=== PATIENT | female | born 2000 | race Two or more races ===

== ENCOUNTER 2024-08-12 19:12 | Emergency (ER) | payer MEDICAID ==
[~2024-08-12] VITALS: Ht 182.9 cm; Wt 79.1 kg
--- NOTE | 2024-08-12 19:31 | ED.PDOC ---
Psychiatric HPI Comments 24-year-old biological male, self-identifying female presents with a chief complaint of hopelessness and suicidal ideation by ingestion x 1 hour ago. Patient states that they took an unknown dosage amount of Tylenol PM's and states that they took approximately 10 pills. Patient states that they are "tired" of life and that this is the first time that they have done this before. Patient does not have outpatient psychological services established such as therapist and psychiatrist. No other symptoms or modifying factors present at this time. Time Seen by MD: 19:23 Reviewed Notes: Medications, Allergies Information Source: Patient Mode of Arrival: Ambulatory Severity: Able to Care for Self, Unable to Control Self Severity of Pain: None Severity of Mental Status: Severe Severity of Symptoms: None Timing: Hours Duration: Since onset Prehospital treatment: None Presents with: Suicidal Ideation Attempt: Ingestion Ingestion: Intentional, Drug(s) Ingested (Tylenol PM), Amount Ingested (UNKNOWN AMOUNT) Current substance abuse: None Associated signs and symptoms: Hopeless Past Medical History PAST MEDICAL HISTORY: Denies Surgical History: Denies all surgeries [employer] WORKER History: Denies all [employer] WORKER Hx Family History Family History: Reviewed,noncontributory to illness Social History Smoker: Non-Smoker Alcohol: Denies ETOH Use Drugs: Denies Drug Use Lives In: Home Constitutional: denies: chills, diaphoresis, fatigue, fever, malaise, sweats, weakness, others EENTM: denies: blurred vision, double vision, ear bleeding, ear discharge, ear drainage, ear pain, ear ringing, eye pain, eye redness, hearing loss, mouth pain, mouth swelling, nasal discharge, nose bleeding, nose congestion, nose pain, photophobia, tearing, throat pain, throat swelling, voice changes, others Respiratory: denies: cough, hemoptysis, orthopnea, SOB at rest, shortness of breath, SOB with excertion, stridor, wheezing, others Cardiovascular: denies: chest pain, dizzy spells, diaphoresis, Dyspnea on ex ertion, edema, irregular heart beat, left arm pain, lightheadedness, palpitations, PND, syncope, others Gastrointestinal: denies: abdomen distended, abdominal pain, blood streaked bowels, constipated, diarrhea, dysphagia, difficulty swallowing, hematemesis, melena, nausea, poor appetite, poor fluid intake, rectal bleeding, rectal pain, vomiting, others Genitourinary: denies: abnormal vagina bleeding, burning, dyspareunia, dysuria, flank pain, frequency, hematuria, incontinence, pain, , vagina discharge, urgency, others Neurological: denies: dizziness, fainting, headache, left sided numbness, left sided weakness, numbness, paresthesia, pre-existing deficit, right sided numbness, right sided weakness, seizure, speech problems, tingling, tremors, weakness, others Musculoskeletal: denies: back pain, gout, joint pain, joint swelling, muscle pain, muscle stiffness, neck pain, others Integumetry: denies: bruises, change in color, change in hair/nails, dryness, laceration, lesions, lumps, rash, wounds, others Allergic/Immunocompromised: denies: Difficulty Healing, Frequent Infections, Hives, Itching, others Hematologic/Lymphatic: denies: anemia, blood clots, easy bleeding, easy bruising, swollen glands, others Endocrine: denies: excessive hunger, excessive sweating, excessive thirst, excessive urination, flushing, intolerance to cold, intolerance to heat, unexplained weight gain, unexplained weight loss, others Psychiatric: reports: hopeless, suicidal; denies: anxiety, bipolar disorder, depression, panic disorder, schizophrenia, sleepless, others All Other Systems: Reviewed and Negative Physical Exam General Appearance: Mild Distress, Normal HEENT: NOT DONE Neck: NOT DONE Respiratory: Chest Non-Tender, Lungs Clear, No Accessory Muscle Use, No Respiratory Distress, Normal Breath Sounds Cardiovascular: No Edema, No JVD, No Murmur, No Gallop, Normal Peripheral Pulses, Regular Rate/Rhythm Breast Exam: Deferred Gastrointestinal: No Organomegaly, Non Tender, No Pulsatile Mass, Normal Bowel Sounds, Soft Genitalia: Deferred Pelvic: Deferred Rectal: Deferred Extremities: No calf tenderness, Normal capillary refill, Normal inspection, Normal range of motion, Non-tender, No pedal edema Neurologic: Alert, dry starch operator II-XII nml as Tested, No Motor Deficits, Normal Affect, Normal Mood, No Sensory Deficits Cerebellar Function: Normal Reflexes: Normal Skin: Dry, Normal Color, Warm Lymphatic: No Adenopathy Was a procedure done? Was a procedure done?: No X-Ray, Labs, Meds, VS Vital Signs Date Time Temp Pulse Resp B/P (MAP) Pulse Ox O2 Delivery O2 Flow Rate FiO2 08/13/24 00:04 62 08/12/24 19:29 97.9 122 20 143/74 (97) 97 Lab Test 08/12/24 23:48 08/12/24 19:43 Range/Units Acetaminophen Level 19.0 50.0 *H 10.0-20.0 UG/ML White Blood Count 9.3 4.4-10.8 10^3/uL Red Blood Count 4.92 4.0-5.20 10^6/uL Hemoglobin 16.9 H 12.2-16.2 g/dL Hematocrit 48.0 H 36.0-46.0 % Mean Corpuscular Volume 97.5 80.0-100.0 fL Mean Corpuscular Hemoglobin 34.4 H 28.0-32.0 pg Mean Corpuscular Hemoglobin Concent 35.3 32.0-36.0 g/dL Red Cell Distribution Width 13.1 11.8-14.3 % Platelet Count 302 140-450 10^3/uL Mean Platelet Volume 7.1 6.9-10.8 fL Neutrophils (%) (Auto) 75.5 37.0-80.0 % Lymphocytes (%) (Auto) 14.6 10.0-50.0 % Monocytes (%) (Auto) 9.5 0.0-12.0 % Eosinophils (%) (Auto) 0.1 0.0-7.0 % Basophils (%) (Auto) 0.3 0.0-2.0 % Neutrophils # (Auto) 7.0 1.6-8.6 10 ^3/uL Lymphocytes # (Auto) 1.4 0.4-5.4 10 ^3/uL Monocytes # (Auto) 0.9 0-1.3 10 ^3/uL Eosinophils # (Auto) 0 0-0.8 10 ^3/uL Basophils # (Auto) 0 0-0.2 10 ^3/uL Nucleated Red Blood Cells 0.0 % Sodium Level 136 136-145 mmol/L Potassium Level 3.6 3.5-5.1 mmol/L Chloride Level 100 98-107 mmol/L Carbon Dioxide Level 25 20-31 mmol/L Anion Gap 11 5-15 Blood Urea Nitrogen 11 9-23 mg/dL Creatinine 1.07 H 0.550-1.02 mg/dL Glomerular Filtration Rate Calc 75 >90 mL/min BUN/Creatinine Ratio 10.3 10.0-20.0 Serum Glucose 110 H 74-106 mg/dL Calcium Level 10.3 8.7-10.4 mg/dL Total Bilirubin 5.6 H 0.2-1.0 mg/dL Aspartate Amino Transferase (AST) 16 13-40 U/L Alanine Aminotransferase (ALT) 13 7-40 U/L Alkaline Phosphatase 56 46-116 U/L Total Protein 8.0 5.7-8.2 g/dL Albumin 5.3 H 3.2-4.8 g/dL Salicylates Level < 3.0 -30 mg/dL X-Ray, Labs, Meds, VS Comment REVIEW OF DR. RAMÍREZ PSYCHIATRIST KNOWN, HE WILL PLACE PATIENT WAS UNDER 5150, WE WILL START TRANSFER FOR PSYCHIATRIC FACILITY. TYLENOL LEVEL TRENDING DOWN Time of 1ST Reevaluation: 19:50 Reevaluation 1ST: Unchanged Patient Education/Counseling: Diagnosis, Treatment, Prognosis Family Education/Counseling: Diagnosis, Treatment, Prognosis Departure 1 Departure Time of Disposition: 01:53 Impression: Primary Impression: Major depressive disorder Qualified Codes: F32.9 - Major depressive disorder, single episode, unspecified Additional Impression: Suicide attempt Dis[facility]: [facility] Condition: Stable Discharged With: Self Critical Care Note Critical Care Time?: No Stability Stability form required: No Heart Score Heart Score: Heart Score Response (Comments) Value History N/A 0 EKG N/A 0 Age N/A 0 Risk Factors N/A 0 Troponin N/A 0 Total 0 I personally scribed for HEATHER SANTIAGO ([email or web address]) on 08/12/24 at 19:31. Electronically submitted by Richie Bell ([email or web address]). HEATHER SANTIAGO Aug 12, 2024 19:31
[2024-08-12 20:00] LABS: Eosinophils # (auto) 0 10 ^3/uL (0-0.8); Eosinophils % (auto) 0.1 % (0.0-7.0); Monocytes # (auto) 0.9 10 ^3/uL (0-1.3); Monocytes % (auto) 9.5 % (0.0-12.0)
[2024-08-12 20:01] LABS: Basophils # (auto) 0 10 ^3/uL (0-0.2); Basophils % (auto) 0.3 % (0.0-2.0); Hemoglobin 16.9 g/dL (12.2-16.2); Lymphocytes # (auto) 1.4 10 ^3/uL (0.4-5.4); Lymphocytes % (auto) 14.6 % (10.0-50.0); Mean Corpuscular Hemoglobin 34.4 pg (28.0-32.0); Mean Corpuscular Hgb Conc. 35.3 g/dL (32.0-36.0); Mean Corpuscular Volume 97.5 fL (80.0-100.0); Neutrophils % (auto) 75.5 % (37.0-80.0); Platelet Count (auto) 302 10^3/uL (140-450); Red Blood Cells 4.92 10^6/uL (4.0-5.20); Red Cell Distribution Width 13.1 % (11.8-14.3); White Blood Cell 9.3 10^3/uL (4.4-10.8)
[2024-08-12 20:18] LABS: Alanine Aminotransferase 13 U/L (7-40); Alkaline Phosphatase 56 U/L (46-116); Anion Gap 11 (5-15); Aspartate Aminotransferase 16 U/L (13-40); BUN/Creatinine Ratio 10.3 (10.0-20.0); Blood Urea Nitrogen 11 mg/dL (9-23); Calcium 10.3 mg/dL (8.7-10.4); Carbon Dioxide 25 mmol/L (20-31); Chloride 100 mmol/L (98-107); Potassium 3.6 mmol/L (3.5-5.1); Sodium 136 mmol/L (136-145)
[2024-08-12 20:20] LABS: Albumin 5.3 g/dL (3.2-4.8); Bilirubin, Total 5.6 mg/dL (0.2-1.0); Glucose 110 mg/dL (74-106)
[2024-08-12 20:30] LABS: Salicylate < 3.0 mg/dL (-30)
--- NOTE | 2024-08-13 01:20 | DVHINCON2 ---
Date of Service if different f: Aug 13, 2024 Time of Service: 00:48 Consult Consult Note PSYCHIATRY ED NEW CONSULT HPI: 24 yo TG M->F (goes by [facility]) with no formal PPH with no prior psych hospitalizations and no hx of SA presents to ED BIB parent for safety, psychiatric stabilization and possible med initiation/optimization in setting of SA via intentional drug OD of ~10 tabs of tylenol PM 500 mg. Psychiatry consulted for safety evaluation and recommendations in context of current presentation Per pt, reports over past several weeks/months, experiencing worsening depressed mood, hopelessness, helplessness, negative thoughts, isolation, loss of interest, decreased energy, difficulty with concentration, poor appetite, anhedonia, amotivation and anxiety symptoms to include excessive worry, rumin ation/overthinking, restlessness, racing/intrusive thoughts, feeling tensed and irritability. Also intermittent SI that worsened over past several weeks resulting in suicide attempt via tylenol OD - "i was hoping I would not wake up". Reports primary stress as lack of employment for past year resulting in difficulty finding purpose in life. No overt manic, psychotic, cognitive, di ssociative phenomena, panic, or somatic symptoms noted. Pt currently does not have psychiatrist/therapist out in community. Currently not on any psychotropic agents. No prior psych med trials. Denies self medicating mood symptoms with ETOH, THC or IDU Never , no children, unemployed for past year, lives with GPs, HS grad, no legal issues, some support system noted (immediate family). Unknown trauma hx. Unknown FH No acute medical issues, hx of seizures/TBI, or recent head injuries, NKDA Does have hx of SIB via cutting, last cut several years. No actual hx of suicide attempts/PSG, or prior psych hospitalizations/5150. Denies history of violence, unprovoked aggression, or assaultive behaviors. Denies recent hx of impulsivity, attention seeking behaviors, anger outbursts, emotional dysregulation, mood reactivity or engaging in risky behaviors. Does not have access to firearms. Currently endorses passive SI. Denies HI MSE: General Appearance/Behavior: Alert and awake; appears stated age, well develo ped, fair grooming and hygiene; calm and cooperative, fair eye contact, no PMA/PMR Speech: coherent, rrr Thought Process: linear, logical, appears goal-directed Thought Content: Abnormal Thoughts and Perceptions: None Homicidality / Violent Thoughts: None Suicidality: passive SI Hallucinations: denies AVH Delusions: denies paranoia, persecutory, or grandiose delusions Obsessions /compulsions : None Judgment and Insight: questionable judgment with fair insight Mood & Affect: "depressed" with mood-congruent, constricted/restricted, appropriate Orientation: oriented to person, place, time Attention/Concentration: appears intact Memory: grossly intact Language: no unusual or inappropriate language Assessment: 24 yo TG M->F (goes by [employer]) with no formal PPH with no prior psych hospitalizations and no hx of SA presents to ED BIB parent for safety, psychiatric stabilization and possible med initiation/optimization in setting of SA via intentional drug OD of ~10 tabs of tylenol PM 500 mg Pt is currently expressing some SI with moderate interference in daily functioning. Not on any psychotropics which maybe contributing to current symptoms. No outpt MH services at present. Pt agrees to talk with staff instead of acting on any suicidal feelings while in ED. Pt medically cleared. Thus, acute risk is moderate and hence is appropriate for inpatient psychiatry admission. Pt will benefit from inpatient psychiatric admission for safety, psychiatric stabilization and possible medication initiation. Pt willing to transfer to inpt psych hospitalization voluntarily but recommend 5150 hold for DTS Primary Diagnosis: Major Depressive disorder, recurrent, moderate/severe, w/o PF Recommend 5150 DTS and transfer to inpt psych facility for higher level of care per pts request 1:1 sitter is recommended Defer any psychotropic med initiation to accepting inpt psych facility in setting of tylenol OD - may benefit from SSRI tx initiation Reconsult telepsych services if pt requests to be discharged from ED prior to transfer/upon hold expiration Pt verbalized understanding and is receptive to above tx plan This case was discussed with ED nurse/provider and all parties in agreement with above tx plan Bo Huerta MD Plan discussed with: Patient BO HUERTA MD Aug 13, 2024 01:20
[2024-08-13 04:26] VITALS: PULSE 80; RESP 16; O2SAT 95
[2024-08-13 08:26] VITALS: BP 120/77; PULSE 78; RESP 18; TEMP 97.8; O2SAT 98
--- NOTE | 2024-08-14 07:19 | ECG ---
[facility] Test Date: 2024-08-13 Test Time: 00:04:02 Pat Name: TALIA ESTRADA Department: ER Room: Gender: F Steam Finisher: ER : 2000 Requested By: HEATHER SANTIAGO Order Number: [id number] Reading MD: Rigo Pierce Measurements Intervals [place] Rate: 62 P: 28 CA: 123 QRS: 73 QRSD: 72 T: 44 QT: 399 QTc: 406 Interpretive Statements Sinus rhythm Electronically Signed On 08-15-2024 17:57:40 PST by Rigo Pierce Please click the below link to view image of tracing.
== END 2024-08-13 16:08 | disposition home or self-care (01) ==
LOC: ER 19:12
DX: T39.1X2A Poisoning by 4-Aminophenol derivatives, intentional self-harm, initial encounter (principal); T14.91XA Suicide attempt, initial encounter; F32.9 Major depressive disorder, single episode, unspecified; Y92.89 Other specified places as the place of occurrence of the external cause
CPT/HCPCS: 36415; 80053; 80329; 85025; 93005